=== PATIENT | female | born 1940 | race Caucasian/White ===

== ENCOUNTER 2025-08-24 16:31 | Emergency (ER) | payer BC ==
[~2025-08-24] VITALS: Ht 162.6 cm; Wt 55.3 kg
[2025-08-24] MEDS ORDERED: IBUPROFEN 600 MG TABLET ONE (17:17)
[2025-08-24] MEDS ORDERED: ACETAMINOPHEN ES 500 MG TABLET ONE (17:17)
[2025-08-24] MEDS ORDERED: TDAP [DIPH/PERTUSSIS/TET] 0.5 ML VIAL IM ONE (17:18)
[2025-08-24] MEDS: ACETAMINOPHEN ES 500 MG TABLET PO ONE (17:25)
[2025-08-24] MEDS: IBUPROFEN 600 MG TABLET PO ONE (17:25)
[2025-08-24] MEDS: TDAP [DIPH/PERTUSSIS/TET] 0.5 ML VIAL IM ONE (17:29)
[2025-08-24 18:59] VITALS: BP 134/79; TEMP 98.3; O2SAT 99
== END 2025-08-24 18:59 | disposition home or self-care (01) ==
LOC: ER 16:41
DX: S00.83XA Contusion of other part of head, initial encounter (principal); S00.531A Contusion of lip, initial encounter; I10 Essential (primary) hypertension; E11.9 Type 2 diabetes mellitus without complications; K58.9 Irritable bowel syndrome, unspecified; M06.9 Rheumatoid arthritis, unspecified; W01.198A Fall on same level from slipping, tripping and stumbling with subsequent striking against other object, initial encounter; Y93.89 Activity, other specified; Y92.89 Other specified places as the place of occurrence of the external cause; Y99.9 Unspecified external cause status
CPT/HCPCS: 70450-TC; 70486-TC; 90715